=== PATIENT | female | born 1995 | race African-American/Black ===

== ENCOUNTER 2021-07-12 00:58 | Emergency (ER) | payer OTHER ==
[2021-07-12 01:30] VITALS: BP 117/77; PULSE 91; TEMP 98.2; BMI 23.1
[2021-07-12] MEDS ORDERED: TETRACAINE 0.5% HCL 0.6ML DROPPER.BOTTLE OD ONE (01:51)
[2021-07-12] MEDS ORDERED: FLUORESCEIN NA 1 EA STRIP ONE ×2 (01:51→02:30)
[2021-07-12] MEDS ORDERED: TETRACAINE 0.5% OPHTH SOLN 2 ML BOTTLE ONE (01:52)
[2021-07-12] MEDS ORDERED: FLUORESCEIN NA 1 EA STRIP NR ONE (01:52)
== END 2021-07-12 02:40 | disposition home or self-care (01) ==
LOC: JER 00:58
DX: S05.02XA Injury of conjunctiva and corneal abrasion without foreign body, left eye, initial encounter (principal); W22.8XXA Striking against or struck by other objects, initial encounter
CPT/HCPCS: 99283-25

== ENCOUNTER 2022-10-05 11:25 | Emergency (ER) | payer OTHER ==
[2022-10-05 11:32] VITALS: BP 131/83; PULSE 78; RESP 19; TEMP 97.9; BMI 18.8
== END 2022-10-05 15:58 | disposition home or self-care (01) ==
LOC: JERFT 11:25
DX: S02.2XXA Fracture of nasal bones, initial encounter for closed fracture (principal); S06.0X9A Concussion with loss of consciousness of unspecified duration, initial encounter; Y04.0XXA Assault by unarmed brawl or fight, initial encounter
CPT/HCPCS: 70450-TC; 70486-TC; 99284-25